=== PATIENT | male | born 1990 | race Caucasian/White ===

== ENCOUNTER 2024-01-30 12:20 | Outpatient (CLI) | payer OTHER | END 2024-01-30 12:21 | disposition home or self-care (01) | LOC: BICULT 12:20 | PROVIDERS: ATTEND Family Medicine | DX: N50.812 Left testicular pain (principal); I86.1 Scrotal varices | CPT/HCPCS: 76870; 93976 ==

== ENCOUNTER 2024-05-19 13:57 | Outpatient (CLI) | payer OTHER | END 2024-05-19 13:58 | disposition home or self-care (01) | LOC: BICCT 13:57 | PROVIDERS: ATTEND Nurse Practitioner Family | DX: K92.1 Melena (principal); K62.89 Other specified diseases of anus and rectum; K76.89 Other specified diseases of liver | CPT/HCPCS: 74177 ==